=== PATIENT | male | born 1970 | race Caucasian/White ===

== ENCOUNTER 2019-08-07 09:34 | Emergency (ER) | payer OTHER ==
[2019-08-07] MEDS ORDERED: ONDANSETRON 4 MG/2 ML VIAL ONE ×2 (10:52→11:27)
[2019-08-07] MEDS ORDERED: NA CHLORIDE 0.9% 1,000 ML ONE (10:52)
[2019-08-07 11:00] LABS: Urine Blood TRACE (NEG); Urine Glucose NEGATIVE (NEG); Urine Protein 2+ (NEG); Urine pH 6.5 (5.0-7.0)
[2019-08-07 11:01] LABS: Absolute Lymphocytes (CBC) 0.7 K/uL (0.7-4.9); Basophils % 0.7 % (0-1.3); Hematocrit 46.5 % (39.6-49.0); Lymphocytes % 7.7 % (15.3-44.8); MPV 9.9 fL (7.6-11.3); RBC Red Blood Cell Count 4.96 M/uL (4.33-5.43)
[2019-08-07 11:07] LABS: Urine Bacteria <20 /HPF (NONE SEEN); Urine Culture Reflex Order NOT NEEDED; Urine Mucus HEAVY /HPF (NONE SEEN); Urine RBC <5 /HPF (NONE SEEN)
[2019-08-07 11:13] LABS: Albumin 3.7 g/dL (3.4-5.0); Bilirubin Direct 0.3 mg/dL (0-0.2); Bilirubin Total 0.9 mg/dL (0.2-1.0); Magnesium 2.2 mg/dL (1.8-2.4); Potassium 3.7 mmol/L (3.5-5.1); Protein, Total 8.2 g/dL (6.4-8.2)
--- NOTE | 2019-08-07 12:34 | RAD REPORT ---
EXAM DESCRIPTION: CT - Abdomen Pelvis Wo Contrast - 08/07/2019 12:27 pm CLINICAL HISTORY: lo;Abd pain COMPARISON: No comparisons TECHNIQUE: Axial [address] imaging of the abdomen and pelvis was performed without IV contrast. No IV contrast was given because of allergy, abnormal renal function, patient refusal or physician re quest. Oral contrast was given. All CT scans are performed using dose optimization technique as appropriate and may include automated exposure control or mA/KV adjustment according to patient size. FINDINGS: No suspicious findings in the lung bases. The liver, spleen and pancreas show no suspicious findings on non-contrast imaging. Gallbladder and b iliary tree are also without suspicious finding. No hydronephrosis or suspicious renal mass. No significant adrenal finding. Isodense renal masses an d pyelonephritis cannot be excluded in the absence of IV contrast. The urinary bladder is without sig nificant finding. Stomach and small bowel show no suspicious findings. Appendix is normal. From cecum through descendin g colon no acute finding is seen. Proximal sigmoid colon shows an 8-10 centimeter long segment of nod ular circumferential wall thickening. Patient has diverticulosis in this region. Mild edematous/infla mmatory stranding present in the adjacent fat. No extravasation of the oral contrast which has reache d the rectum. No free air, abscess or other surgically emergent component. No free air, free fluid or other site of inflammatory stranding. No hernia, mass or bulky lymphaden opathy. No suspicious bony findings. IMPRESSION: Mild to moderate severity acute sigmoid diverticulitis. No free air, abscess, extravasation of oral contrast or other surgically emergent component. Full assessment is limited is the absence of IV contrast.
--- NOTE | 2019-08-07 13:00 | EDPHYS ---
Physician Documentation [facility] Name: Rodriguez Carroll Age: 49 yrs Sex: Male : 1970 Arrival Date: 08/07/2019 Time: 09:40 Bed 7 Private MD: ED Physician Artem Barraza HPI: 08/07 10:30 This 49 yrs old Male presents to ER via Ambulatory with complaints of cp Abdominal Pain. 10:30 The patient presents with abdominal pain in the lower abdomen. Onset: The cp symptoms/episode began/occurred 1 month(s) ago. The symptoms radiate to lower back. Associated signs and symptoms: Pertinent positives: diarrhea, fever, Pertinent negatives: blood in stools, chest pain, constipation, dysuria, testicular pain, vomiting. The symptoms are described as constant. Modifying factors: the symptoms are aggravated by pressure. Historical: - Allergies: 09:51 Iodine; iw - Home Meds: 09:51 None [Active]; iw - PMHx: 09:51 TIA; iw - PSHx: 09:51 hemmorrhoid; Tonsillectomy; right leg; iw - Immunization history:: Adult Immunizations. - Social history:: Smoking status: Patient/guardian denies using tobacco, Patient uses alcohol. - Ebola Screening: : Patient negative for fever greater than or equal to 101.5 degrees Fahrenheit, and additional compatible Ebola Virus Disease symptoms Patient denies exposure to infectious person Patient denies travel to an Ebola-affected area in the 21 days before illness onset No symptoms or risks identified at this time. ROS: 10:35 Constitutional: Positive for body aches, chills, Negative for fever, poor PO intake. cp 10:35 Eyes: Negative for injury, pain, redness, and discharge. cp 10:35 Cardiovascular: Negative for chest pain, edema, palpitations. 10:35 Respiratory: Negative for cough, shortness of breath, wheezing. 10:35 Abdomen/GI: Positive for abdominal pain, nausea, diarrhea, Negative for vomiting, constipation, anorexia, black/tarry stool, rectal bleeding. 10:35 Back: Positive for radiated pain. 10:35 : Positive for small amounts, Negative for hematuria, burning with urination, testicular pain 10:35 Skin: Negative for rash. 10:35 Neuro: Negative for altered mental status, headache, weakness. 10:35 All other systems are negative. Exam: 10:40 Constitutional: The patient appears in no acute distress, alert, awake, cp non-diaphoretic, non-toxic, well developed, well nourished, uncomfortable. 10:40 Head/Face: Normocephalic, atraumatic. cp 10:40 Eyes: Periorbital structures: appear normal, Conjunctiva: normal, no exudate, no injection, Sclera: no appreciated abnormality, Lids and lashes: appear normal, bilaterally. 10:40 ENT: External ear(s): are unremarkable, Nose: is normal, Mouth: Lips: moist, Oral mucosa: pink and intact, moist, Posterior pharynx: is normal, airway is patent, no erythema, no exudate. 10:40 Chest/axilla: Inspection: normal, Palpation: is normal, no crepitus, no tenderness. 10:40 Cardiovascular: Rate: tachycardic, Rhythm: regular, Edema: is not appreciated, JVD: is not appreciated. 10:40 Respiratory: the patient does not display signs of respiratory distress, Respirations: normal, no use of accessory muscles, no retractions, no splinting, no tachypnea, labored breathing, is not present, Breath sounds: are clear throughout, no decreased breath sounds, no stridor, no wheezing. 10:40 Abdomen/GI: Inspection: abdomen appears normal, Bowel sounds: active, all quadrants, Palpation: soft, in all quadrants, moderate abdominal tenderness, in the right lower quadrant and left lower quadrant, rebound tenderness, is not appreciated, voluntary guarding, is elicited in the right lower quadrant and left lower quadrant. 10:40 Back: pain, that is moderate, of the low back area and mid back area, ROM is painful. 10:40 Skin: no rash present. Vital Signs: 09:51 BP 141 / 97; Pulse 106; Resp 16 S; Temp 99.2; Pulse Ox 97% on R/A; Weight 86.18 kg; iw Height 5 ft. 9 in. (175.26 cm); Pain 10/10; 10:44 BP 141 / 93; Pulse 94; Resp 16; Pulse Ox 98% ; bp 12:00 BP 135 / 89; Pulse 96; Resp 17; Pulse Ox 97% ; bp 13:00 BP 143 / 92; Pulse 89; Resp 17; Pulse Ox 98% ; bp 14:00 BP 133 / 85; Pulse 85; Resp 16; Temp 98.9; Pulse Ox 98% ; bp 09:51 Body Mass Index 28.06 (86.18 kg, 175.26 cm) iw MDM: 09:55 Patient medically screened. kvng 11:00 Differential diagnosis: appendicitis, bowel obstruction, diverticulitis, gastritis, cp non-specific abd pain, Ureterolithiasis, urinary tract infection. 12:58 Data reviewed: vital signs, nurses notes, lab test result(s), radiologic studies, CT cp scan, and as a result, I will discharge patient. 12:58 Counseling: I had a detailed discussion with the patient and/or guardian regarding: the cp historical points, exam findings, and any diagnostic results supporting the discharge/admit diagnosis, lab results, radiology results, the need for outpatient follow up, a errand runner, to return to the emergency department if symptoms worsen or persist or if there are any questions or concerns that arise at home. Response to treatment: the patient's symptoms have markedly improved after treatment. 08/07 10:09 Order name: Urine Dipstick--Ancillary (enter results); Complete Time: 11:27 08/07 11:27 Interpretation: Normal except: UKET 4+; UBLD TRACE; UPROT 2+. 08/07 10:24 Order name: Basic Metabolic Panel 08/07 10:24 Order name: CBC with Diff; Complete Time: 11:27 08/07 11:27 Interpretation: Normal except: ELANA% 82.2; LYM% 7.7. 08/07 10:24 Order name: Creatinine for Radiology; Complete Time: 11:27 cp 08/07 10:24 Order name: Hepatic Function; Complete Time: 11:27 cp 08/07 11:28 Interpretation: Normal except: AST 50; ALT 83; ALK 147; BILID 0.3; GLOB 4.5; A/G 0.8. 08/07 10:24 Order name: Lipase; Complete Time: 11:27 cp 08/07 11:28 Interpretation: Within normal limits: LIP 131. 08/07 10:24 Order name: Urine Microscopic Only; Complete Time: 11:27 cp 08/07 10:24 Order name: PT-INR; Complete Time: 11: cp 08/07 10:24 Order name: Ptt, Activated; Complete Time: 11:27 cp 08/07 10:24 Order name: Magnesium; Complete Time: 11:27 cp 08/07 10:24 Order name: Basic Metabolic Panel; Complete Time: 11:27 EDMS 08/07 11:28 Interpretation: Normal except: GFR 72. cp 08/07 12:26 Order name: Abdomen ; Complete Time: 12:41 EDMS 08/07 12:43 Interpretation: Report reviewed. cp 08/07 10:24 Order name: IV Saline Lock; Complete Time: 10:57 cp 08/07 10:24 Order name: Labs collected and sent; Complete Time: 10:57 cp 08/07 12:43 Order name: PO challenge; Complete Time: 13:13 cp Administered Medications: 10:40 Drug: NS 0.9% 1000 ml Route: IV; Rate: 1 bolus; Site: right antecubital; bp 14:06 Follow up: IV Status: Completed infusion bp 10:40 Drug: Zofran 4 mg Route: IVP; Site: right antecubital; bp 11:27 Follow up: Response: Pain is decreased bp 10:56 Not Given (Patient Refused): morphine 2 mg IVP once; (PAIN>8) RASS on ADMN: Combtv4, bp Very Agttd3, Agttd2, Rstlss1, AlertClm0, Drwsy-1, LtSdtn-2, ModSdtn-3, DpSdtn-4, UnArsble-5 x2 11:26 Drug: Zofran 4 mg Route: IVP; Site: right antecubital; bp 11:27 Follow up: Response: Nausea is decreased bp 13:00 Drug: metroNIDAZOLE 500 mg Volume: 100 ml; Route: IVPB; Infused Over: 30 mins; Site: bp right antecubital; 14:05 Follow up: IV Status: Completed infusion; IV Intake: 100ml bp 13:05 Drug: Bentyl 20 mg Route: PO; bp 14:05 Follow up: Response: Pain is decreased bp 13:05 Drug: Cipro 500 mg Route: PO; bp 14:06 Follow up: Response: No adverse reaction bp Disposition: 08/08 07:54 Co-signature as Attending Physician, Artem Barraza MD I agree with the assessment and kvng plan of care. Disposition: 01/09/20 12:59 Discharged to Home. Impression: Diverticulitis of large intestine without perforation or abscess without bleeding. - Condition is Stable. - Discharge Instructions: Clear Liquid Diet, Adult, High-Fiber Diet, Diverticulitis. - Prescriptions for Bentyl 20 mg Oral Tablet - take 1 tablet by ORAL route every 6 hours As needed; 20 tablet. Zofran 4 mg Oral Tablet - take 1 tablet by ORAL route every 12 hours As needed; 20 tablet. Cipro 500 mg Oral Tablet - take 1 tablet by ORAL route every 12 hours for 10 days; 20 tablet. Metronidazole 500 mg Oral Tablet - take 1 tablet by ORAL route every 8 hours; 30 tablet. - Medication Reconciliation Form, Thank You Letter, Antibiotic Education, Prescription Opioid Use form. - Follow up: Eugenio Leong MD; When: next week; Reason: Recheck today's complaints. - Problem is new. - Symptoms have improved. Signatures: Dispatcher [employer] EDID Artem Barraza MD MD cha Williams, Irene, RN RN iw Artem Otto PA PA cp Sourav Turner, RN RN bp Corrections: (The following items were deleted from the chart) 08/07 12:27 10:25 Abdomen Pelvis W Con+CT.RAD.BRZ ordered. [facility] 14:06 12:59 08/07/2019 12:59 Discharged to Home. Impression: Diverticulitis of large bp intestine without perforation or abscess without bleeding. Condition is Stable. Forms are Medication Reconciliation Form, Thank You Letter, Antibiotic Education, Prescription Opioid Use. Follow up: Eugenio Leong; When: next week; Reason: Recheck today's complaints. Problem is new. Symptoms have improved. cp
--- NOTE | 2019-08-07 13:00 | ER ---
Nurse's Notes [facility] Name: Rodriguez Carroll Age: 49 yrs Sex: Male : 1970 Arrival Date: 08/07/2019 Time: 09:40 Bed 7 Private MD: Diagnosis: Diverticulitis of large intestine without perforation or abscess without bleeding Presentation: 08/07 09:47 Presenting complaint: Patient states: been having abd issues for past month, stopped iw drinking Sunday to see if it would help, normally drinks 4-5 "doubles" a night, not getting better, since Sunday had fever/chills, body aches, low abd pain low back, also having urgency and not urinating much, dark urine, +diarrhea for months. Transition of care: patient was not received from another setting of care. Onset of symptoms was June 2019. Risk Assessment: Do you want to hurt yourself or someone else? Patient reports no desire to harm self or others. Initial Sepsis Screen: Does the patient meet any 2 criteria? No. Patient's initial sepsis screen is negative. Does the patient have a suspected source of infection? No. Patient's initial sepsis screen is negative. Care prior to arrival: None. 09:47 Method Of Arrival: Ambulatory iw 09:47 Acuity: BERNARDINO 3 iw Triage Assessment: 09:55 General: Appears in no apparent distress. comfortable, Behavior is cooperative, bp appropriate for age, anxious. Pain: Complains of pain in right lower quadrant and left lower quadrant. EENT: No deficits noted. Neuro: No deficits noted. Cardiovascular: Rhythm is sinus tachycardia. Respiratory: No deficits noted. GI: Reports lower abdominal pain, diarrhea. : No signs and/or symptoms were reported regarding the genitourinary system. Derm: No deficits noted. Musculoskeletal: No deficits noted. Historical: - Allergies: 09:51 Iodine; iw - Home Meds: 09:51 None [Active]; iw - PMHx: 09:51 TIA; iw - PSHx: 09:51 hemmorrhoid; Tonsillectomy; right leg; iw - Immunization history:: Adult Immunizations. - Social history:: Smoking status: Patient/guardian denies using tobacco, Patient uses alcohol. - Ebola Screening: : Patient negative for fever greater than or equal to 101.5 degrees Fahrenheit, and additional compatible Ebola Virus Disease symptoms Patient denies exposure to infectious person Patient denies travel to an Ebola-affected area in the 21 days before illness onset No symptoms or risks identified at this time. Screenin:59 Abuse screen: Denies threats or abuse. Denies injuries from another. Nutritional bp screening: No deficits noted. Tuberculosis screening: No symptoms or risk factors identified. Fall Risk None identified. Assessment: 09:55 General: SEE TRIAGE NOTE. bp 10:40 Reassessment: PO CONTRAST COMPLETE, CT NOTIFIED. bp 12:34 Reassessment: PT RETURNED FROM CT. bp 13:14 Reassessment: PO CHALLENGE SUCCESSFUL. D/C ON HOLD FOR ABX COMPLETION. bp 14:03 Reassessment: ABX COMPLETE. PT D/C HOME AMBULATORY, DX WITH DIVERTICULITIS. bp Vital Signs: 09:51 BP 141 / 97; Pulse 106; Resp 16 S; Temp 99.2; Pulse Ox 97% on R/A; Weight 86.18 kg; iw Height 5 ft. 9 in. (175.26 cm); Pain 10/10; 10:44 BP 141 / 93; Pulse 94; Resp 16; Pulse Ox 98% ; bp 12:00 BP 135 / 89; Pulse 96; Resp 17; Pulse Ox 97% ; bp 13:00 BP 143 / 92; Pulse 89; Resp 17; Pulse Ox 98% ; bp 14:00 BP 133 / 85; Pulse 85; Resp 16; Temp 98.9; Pulse Ox 98% ; bp 09:51 Body Mass Index 28.06 (86.18 kg, 175.26 cm) iw ED Course: 09:40 Patient arrived in ED. am2 09:50 Triage completed. iw 09:51 Arm band placed on. iw 09:54 Artem Otto PA is PHCP. cp 09:54 Artem Barraza MD is Attending Physician. cp 09:58 Sourav Turner, ISATU is Primary Nurse. bp 09:59 Patient has correct armband on for positive identification. Bed in low position. Call bp light in reach. Side rails up X2. Adult w/ patient. 10:40 Inserted saline lock: 20 gauge in right antecubital area, using aseptic technique. bp Blood collected. 12:28 Abdomen In Process Unspecified. EDMS 12:58 Eugenio Leong MD is Referral Physician. cp 14:03 No provider procedures requiring assistance completed. IV discontinued, intact, bp bleeding controlled, No redness/swelling at site. Pressure dressing applied. Administered Medications: 10:40 Drug: NS 0.9% 1000 ml Route: IV; Rate: 1 bolus; Site: right antecubital; bp 14:06 Follow up: IV Status: Completed infusion bp 10:40 Drug: Zofran 4 mg Route: IVP; Site: right antecubital; bp 11:27 Follow up: Response: Pain is decreased bp 10:56 Not Given (Patient Refused): morphine 2 mg IVP once; (PAIN>8) RASS on ADMN: Combtv4, bp Very Agttd3, Agttd2, Rstlss1, AlertClm0, Drwsy-1, LtSdtn-2, ModSdtn-3, DpSdtn-4, UnArsble-5 x2 11:26 Drug: Zofran 4 mg Route: IVP; Site: right antecubital; bp 11:27 Follow up: Response: Nausea is decreased bp 13:00 Drug: metroNIDAZOLE 500 mg Volume: 100 ml; Route: IVPB; Infused Over: 30 mins; Site: bp right antecubital; 14:05 Follow up: IV Status: Completed infusion; IV Intake: 100ml bp 13:05 Drug: Bentyl 20 mg Route: PO; bp 14:05 Follow up: Response: Pain is decreased bp 13:05 Drug: Cipro 500 mg Route: PO; bp 14:06 Follow up: Response: No adverse reaction bp Intake: 14:05 IV: 100ml; Total: 100ml. bp Outcome: 12:59 Discharge ordered by . cp 14:04 Discharged to home ambulatory. bp 14:04 Condition: stable 14:04 Discharge instructions given to patient, Instructed on discharge instructions, follow up and referral plans. medication usage, Demonstrated understanding of instructions, follow-up care, medications, Prescriptions given X 4. 14:06 Patient left the ED. bp Signatures: Dispatcher [employer] EDAimee Gamboa RN RN iw Artem Otto PA PA Sandy Blake am2 Sourav Turner RN RN bp
[2019-08-07] MEDS ORDERED: CIPROFLOXACIN HCL 500 MG TAB ONE (13:08)
[2019-08-07] MEDS ORDERED: DICYCLOMINE HCL 10 MG CAP ONE (13:09)
[2019-08-07] MEDS ORDERED: METRONIDAZOLE 500mg IVPB 500 MG/100 ML BAG IV ONE (13:09)
[2019-08-07 14:15] VITALS: O2SAT 98
[2019-08-07 14:16] VITALS: BP 133/85; TEMP 98.9
== END 2019-08-07 14:06 | disposition home or self-care (01) ==
LOC: ER 09:34
DX: K57.32 Diverticulitis of large intestine without perforation or abscess without bleeding (principal); Z91.048 Other nonmedicinal substance allergy status
CPT/HCPCS: 96365; 96361; 85025; 80048; 36415; 83735; 85610; 80076; 85730; 83690; 74176; 96375; 99284; J7030; J2405 ×2; 81003; 81015

== ENCOUNTER 2019-10-01 15:05 | Inpatient (IN) | payer OTHER ==
--- OUTSIDE RECORDS SUMMARY | 2019-10-01 15:07 | XMS REPORT ---
:1970 [facility] Address [address] [place] [address] Dr. Ivy [address] [place] [id number] Care Team Providers Name Role Phone Unavailable Unavailable Unavailable Problems This patient has no known problems. Allergies, Adverse Reactions, Alerts This patient has no known allergies or adverse reactions. Medications This patient has no known medications.
[2019-10-01 16:20] LABS: Absolute Lymphocytes (CBC) 1.4 K/uL (0.7-4.9); Basophils % 1.2 % (0-1.3); Lymphocytes % 21.5 % (15.3-44.8); MPV 8.8 fL (7.6-11.3); RBC Red Blood Cell Count 4.32 M/uL (4.33-5.43)
[2019-10-01 16:42] LABS: ALT/SGPT 47 U/L (12-78); AST/SGOT 21 U/L (15-37); Albumin 3.9 g/dL (3.4-5.0); Alkaline Phosphatase 74 U/L (45-117); BUN Blood Urea Nitrogen 16 mg/dL (7-18); Bicarbonate 28 mmol/L (21-32); Bilirubin Direct < 0.1 mg/dL (0-0.2); Bilirubin Total 0.4 mg/dL (0.2-1.0); Glucose Level 98 mg/dL (74-106); Lipase 152 U/L (73-393); Potassium 3.9 mmol/L (3.5-5.1); Protein, Total 7.7 g/dL (6.4-8.2); Sodium Level 140 mmol/L (136-145)
[2019-10-01] MEDS ORDERED: NA CHLORIDE 0.9% 1,000 ML ONE (17:15)
--- NOTE | 2019-10-01 17:17 | RAD REPORT ---
EXAM DESCRIPTION: CT - Abdomen Pelvis Wo Contrast - 10/01/2019 5:00 pm CLINICAL HISTORY: Abdominal pain COMPARISON: July 2019 TECHNIQUE: Computed axial tomography of the abdomen and pelvis was obtained. IV and oral contrast we re not requested. All CT scans are performed using dose optimization technique as appropriate and may include automated exposure control or mA/KV adjustment according to patient size. FINDINGS: The evaluation of solid organs, vessels and bowel is limited secondary to the lack of con trast administration. The liver, spleen, pancreas, adrenals and kidneys appear grossly normal. The appendix is normal. Mild stranding is present adjacent to the sigmoid colon. There is an 11 millimeter extraluminal colle ction of air within the mesocolon. No abscess. No free air IMPRESSION: Mild diverticulitis. However there is an 11 millimeter extraluminal collection of air co ntained within the mesocolon indicative of a micro perforation.
--- NOTE | 2019-10-01 17:45 | ER ---
Nurse's Notes [facility] Name: Rodriguez Carroll Age: 49 yrs Sex: Male : 1970 Arrival Date: 10/01/2019 Time: 15:08 Bed 14 Private MD: Diagnosis: Diverticulitis of large intestine with perforation and abscess with bleeding Presentation: 09/30 15:11 Chief complaint: Patient states: A month ago, was here and diagnosed with ca1 diverticulitis and was given antibiotics. Seen Dr. Massey and he put me again on the same antibiotics. So I have been taking them for 2 weeks now. I felt better for about 3-4 days, but this weekend, I am back to where I started, with fever, abdominal pain and some rectal bleeding with constipation. Reports nausea and diarrhea also. Coronavirus screen: The patient has NOT traveled to a country currently being monitored by the CDC within the last 14 days. The patient has NOT had contact with any known and/or suspected case of coronavirus. Ebola Screen: Patient negative for fever greater than or equal to 101.5 degrees Fahrenheit, and additional compatible Ebola Virus Disease symptoms Patient denies exposure to infectious person. Patient denies travel to an Ebola-affected area in the 21 days before illness onset. No symptoms or risks identified at this time. Initial Sepsis Screen: Does the patient meet any 2 criteria? No. Patient's initial sepsis screen is negative. Does the patient have a suspected source of infection? No. Patient's initial sepsis screen is negative. Risk Assessment: Do you want to hurt yourself or someone else? Patient reports no desire to harm self or others. Onset of symptoms was October 01, 2019. 15:11 Method Of Arrival: Ambulatory ca1 15:11 Acuity: BERNARDINO 3 ca1 Triage Assessment: 15:20 General: Appears in no apparent distress. comfortable, Behavior is calm, cooperative, ca1 appropriate for age. Pain: Complains of pain in abdomen. Historical: - Allergies: 15:20 Iodine; ca1 - Home Meds: 15:20 None [Active]; ca1 - PMHx: 15:20 TIA; Diverticulitis; ca1 - PSHx: 15:20 hemmorrhoidectomy; Tonsillectomy; right leg; ca1 - Immunization history:: Adult Immunizations up to date, Flu vaccine is up to date. - Social history:: Smoking status: Patient reports use of chewing tobacco. Screenin:26 Abuse screen: Denies threats or abuse. Denies injuries from another. Nutritional bp screening: No deficits noted. Tuberculosis screening: No symptoms or risk factors identified. Fall Risk None identified. Assessment: 15:26 General: SEE TRIAGE NOTE. GI: Bowel sounds present X 4 quads. Abd is soft X 4 quads. bp 16:54 Reassessment: PT TO CT WITH VEHICLE UPHOLSTERER. bp 17:09 Reassessment: PT RETURNED FROM CT. RESULTS PENDING. bp 17:38 Reassessment: PT LAST PO INTAKE CONFIRMED 1230 TODAY. PER RADIOLOGIST, BOWEL bp PERFORATION NOTED ON CT. 18:06 Reassessment: DR HARVEY AT B/S FOR ADMIT. bp 19:15 General: Appears in no apparent distress. Behavior is calm, cooperative. Pain: Denies ah pain. Neuro: Level of Consciousness is awake, alert, Oriented to person, place, time. Cardiovascular: Reports Heart tones S1 S2 present. Respiratory: Respiratory effort is even, unlabored, Respiratory pattern is regular, symmetrical. GI: Bowel sounds present X 4 quads. Abd is soft X 4 quads. Vital Signs: 15:11 BP 135 / 93; Pulse 76; Resp 17 S; Temp 97.9(TE); Pulse Ox 98% on R/A; Weight 81.19 kg ca1 (R); Height 5 ft. 9 in. (175.26 cm) (R); Pain 2/10; 16:08 BP 126 / 86; Pulse 70; Resp 16; Pulse Ox 96% ; bp 16:54 BP 131 / 94; Pulse 62; Resp 17; Pulse Ox 97% ; bp 18:05 BP 148 / 93; Pulse 67; Resp 16; Pulse Ox 100% ; bp 19:45 BP 132 / 76; Pulse 64; Temp 97.9; Pulse Ox 99% ; ah 15:11 Body Mass Index 26.43 (81.19 kg, 175.26 cm) ca1 ED Course: 15:08 Patient arrived in ED. mr 15:19 Triage completed. ca1 15:20 Arm band placed on right wrist. ca1 15:25 Sourav Turner, ISATU is Primary Nurse. bp 15:26 Artem Otto PA is PHCP. cp 15:26 Ernesto Mendoza MD is Attending Physician. cp 15:26 Patient has correct armband on for positive identification. Bed in low position. Call bp light in reach. Side rails up X2. 16:05 Inserted saline lock: 20 gauge in right antecubital area, using aseptic technique. bp Blood collected. 17:01 CT Abd/Pelvis - Without Contrast In Process Unspecified. EDUT 17:43 Lu Harvey MD is Hospitalizing Provider. cp 20:05 No provider procedures requiring assistance completed. Patient admitted, IV remains in place. intact. Administered Medications: 17:00 Drug: NS 0.9% 1000 ml Route: IV; Rate: 1 bolus; Site: right antecubital; bp 17:50 Drug: Zosyn 3.375 grams Route: IVPB; Infused Over: 60 mins; Site: right antecubital; bp Outcome: 17:44 Decision to Hospitalize by Provider. cp 20:03 Admitted to [facility] by [facility], via wheelchair, room 408, with chart, Report called to Rosario LUNSFORD 20:03 Condition: good 20:03 Instructed on the need for admit, Demonstrated understanding of instructions. 20:31 Patient left the ED. Signatures: Dispatcher [employer] EDUT Gopal Megan Artem Reed, Sourav Medrano cp, RN RN Trisha Leonardo RN RN ca1 Harris, Amy, RN RN
--- NOTE | 2019-10-01 17:46 | EDPHYS ---
Physician Documentation [facility] Name: Rodriguez Carroll Age: 49 yrs Sex: Male : 1970 Arrival Date: 10/01/2019 Time: 15:08 Bed 14 Private MD: ED Physician Ernesto Mendoza HPI: 09/30 15:55 This 49 yrs old Male presents to ER via Ambulatory with complaints of cp Abdominal Pain. 15:55 The patient presents with abdominal pain in the lower abdomen. cp 15:55 Onset: The symptoms/episode began/occurred gradually. The symptoms do not radiate. cp Associated signs and symptoms: Pertinent positives: constipation, diarrhea, fever, rectal bleeding, Pertinent negatives: nausea and vomiting, chest pain, dysuria, testicular pain. 15:55 The patient has experienced a previous episode, occurred specifically on July 2019, cp was diagnosed with diverticulitis. Patient reports he is currently taking oral antibiotics prescribed by DR Leong for diverticulitis for past 2 weeks. Historical: - Allergies: 15:20 Iodine; ca1 - Home Meds: 15:20 None [Active]; ca1 - PMHx: 15:20 TIA; Diverticulitis; ca1 - PSHx: 15:20 hemmorrhoidectomy; Tonsillectomy; right leg; ca1 - Immunization history:: Adult Immunizations up to date, Flu vaccine is up to date. - Social history:: Smoking status: Patient reports use of chewing tobacco. ROS: 16:00 Constitutional: Negative for body aches, chills, fever, poor PO intake. cp 16:00 Eyes: Negative for injury, pain, redness, and discharge. cp 16:00 ENT: Negative for ear pain, sore throat, difficulty swallowing, difficulty handling secretions. 16:00 Cardiovascular: Negative for chest pain, palpitations. 16:00 Respiratory: Negative for cough, shortness of breath, wheezing. 16:00 Abdomen/GI: Positive for abdominal pain, diarrhea, constipation, rectal bleeding, Negative for nausea, vomiting, anorexia, black/tarry stool. 16:00 Back: Negative for radiated pain. 16:00 : Negative for urinary symptoms, testicular pain 16:00 Skin: Negative for rash. 16:00 Neuro: Negative for altered mental status, headache, weakness. 16:00 All other systems are negative. Exam: 16:15 Constitutional: The patient appears in no acute distress, alert, awake, non-toxic, well cp developed, well nourished. 16:15 Head/Face: Normocephalic, atraumatic. cp 16:15 Eyes: Periorbital structures: appear normal, Conjunctiva: normal, no exudate, no injection, Sclera: no appreciated abnormality, Lids and lashes: appear normal, bilaterally. 16:15 ENT: External ear(s): are unremarkable, Nose: is normal, Mouth: Lips: moist, Oral mucosa: pink and intact, moist, Posterior pharynx: is normal, airway is patent, no erythema, no exudate. 16:15 Neck: ROM/movement: is normal, is supple, without pain, no range of motions limitations. 16:15 Chest/axilla: Inspection: normal, Palpation: is normal, no crepitus, no tenderness. 16:15 Cardiovascular: Rate: normal, Rhythm: regular. 16:15 Respiratory: the patient does not display signs of respiratory distress, Respirations: normal, no use of accessory muscles, labored breathing, is not present, Breath sounds: are clear throughout, no decreased breath sounds, no wheezing. 16:15 Abdomen/GI: Inspection: abdomen appears normal, Bowel sounds: active, all quadrants, Palpation: soft, in all quadrants, moderate abdominal tenderness, in the right lower quadrant and left lower quadrant, rebound tenderness, is not appreciated, voluntary guarding, is elicited in the right lower quadrant and left lower quadrant. 16:15 Back: pain, is absent, ROM is normal. 16:15 Skin: no rash present. 16:15 Neuro: Orientation: to person, place \T\ time. Mentation: is normal, Motor: moves all fours, strength is normal. 17:17 : Rectal exam: Rectal tone: normal, Stool: brown, Guaiac testing: results were cp positive for occult blood, hemorrhoid(s), are not appreciated. Vital Signs: 15:11 BP 135 / 93; Pulse 76; Resp 17 S; Temp 97.9(TE); Pulse Ox 98% on R/A; Weight 81.19 kg ca1 (R); Height 5 ft. 9 in. (175.26 cm) (R); Pain 2/10; 16:08 BP 126 / 86; Pulse 70; Resp 16; Pulse Ox 96% ; bp 16:54 BP 131 / 94; Pulse 62; Resp 17; Pulse Ox 97% ; bp 18:05 BP 148 / 93; Pulse 67; Resp 16; Pulse Ox 100% ; bp 19:45 BP 132 / 76; Pulse 64; Temp 97.9; Pulse Ox 99% ; ah 15:11 Body Mass Index 26.43 (81.19 kg, 175.26 cm) ca1 MDM: 15:26 Patient medically screened. cp 16:00 Differential diagnosis: appendicitis, cholecystitis, Cholelithiasis, diverticulitis, cp gastritis, non-specific abd pain, pancreatitis, urinary tract infection. 17:25 Data reviewed: vital signs, nurses notes, lab test result(s), radiologic studies, CT cp scan, and as a result, I will admit patient. 17:42 Physician consultation: Garry Nunn MD was contacted at 17:42, regarding consult, cp patient's condition, and will see patient in inpatient room, tomorrow, would like admission per Dr. Lu Geller MD would like medications started, Zosyn. 18:00 Counseling: I had a detailed discussion with the patient and/or guardian regarding: the cp historical points, exam findings, and any diagnostic results supporting the discharge/admit diagnosis, lab results, radiology results, the need for further work-up and treatment in the hospital. 09/30 15:51 Order name: Basic Metabolic Panel; Complete Time: 16:44 cp 09/30 17:25 Interpretation: Normal except: GFR 74. cp 09/30 15:51 Order name: CBC with Diff; Complete Time: 16:44 cp 09/30 15:51 Order name: Creatinine for Radiology; Complete Time: 16:44 cp 09/30 15:51 Order name: Hepatic Function; Complete Time: 16:44 cp 09/30 15:52 Order name: Lipase; Complete Time: 16:44 cp 09/30 16:47 Order name: CT Abd/Pelvis - Without Contrast; Complete Time: 17:25 cp 09/30 17:25 Interpretation: Report reviewed. cp 09/30 15:52 Order name: IV Saline Lock; Complete Time: 16:07 cp 09/30 15:52 Order name: Labs collected and sent; Complete Time: 16:08 cp 09/30 17:26 Order name: NPO; Complete Time: 17:34 cp Administered Medications: 17:00 Drug: NS 0.9% 1000 ml Route: IV; Rate: 1 bolus; Site: right antecubital; bp 17:50 Drug: Zosyn 3.375 grams Route: IVPB; Infused Over: 60 mins; Site: right antecubital; bp Disposition: 10/01 10:50 Co-signature as Attending Physician, Ernesto Mendoza MD I agree with the assessment and kdr plan of care. Disposition: 10/01/19 17:44 Hospitalization ordered by Lu Geller for Inpatient Admission. Preliminary diagnosis is Diverticulitis of large intestine with perforation and abscess with bleeding. - Bed requested for Telemetry/MedSurg (Inpatient). - Status is Inpatient Admission. ah - Condition is Stable. - Problem is an ongoing problem. - Symptoms are unchanged. Signatures: Dispatcher [employer] EDMS Omaira Rodriguez Kevin, MD MD [facility] Artem Otto PA PA cp Sourav Turner, RN RN bp Trisha Foster, RN RN [facility] Ivone Short RN RN Corrections: (The following items were deleted from the chart) 09/30 18:11 17:44 Hospitalization Ordered by Lu Geller MD for Inpatient Admission. Preliminary bd diagnosis is Diverticulitis of large intestine with perforation and abscess with bleeding. Bed requested for Telemetry/MedSurg (Inpatient). Status is Inpatient Admission. Condition is Stable. Problem is an ongoing problem. Symptoms are unchanged. cp 20:31 18:11 10/01/2019 17:44 Hospitalization Ordered by Lu Geller MD for Inpatient Admission. Preliminary diagnosis is Diverticulitis of large intestine with perforation and abscess with bleeding. Bed requested for Telemetry/MedSurg (Inpatient). Status is Inpatient Admission. Condition is Stable. Problem is an ongoing problem. Symptoms are unchanged. bd
[2019-10-01] MEDS ORDERED: PIPER/TAZO/NS 3.375gm 3.375 GM/100 ML BAG ONE (17:55)
[2019-10-01] MEDS ORDERED: MORPHINE 2 MG/ML SYR IV PRN (20:26)
[2019-10-01] MEDS ORDERED: ONDANSETRON 4 MG/2 ML VIAL IV PRN (20:26)
[2019-10-01] MEDS ORDERED: ACETAMINOPHEN 650MG/RECT SUPP RECT PRN (20:26)
[2019-10-01] MEDS ORDERED: HYDRALAZINE HCL 20 MG/ML VIAL IV PRN (20:26)
[2019-10-01 20:32] VITALS: BMI 26.4
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
[2019-10-02] MEDS ORDERED: PIPERACIL/TAZO 3.375 GM VIAL IV ONE (00:28)
[2019-10-02] MEDS ORDERED: NA CHLORIDE 0.9% 100 ML IV ONE (00:35)
[2019-10-02] MEDS: D5.45NS W/KCL 20MEQ 1,000 ML IV SCH ×4 (00:49→17:26)
[2019-10-02] MEDS: PIPER/TAZO/NS 3.375gm 3.375 GM/100 ML BAG IVPB SCH ×3 (00:52→17:00)
[2019-10-02 04:40] LABS: Albumin 3.1 g/dL (3.4-5.0); Bilirubin Total 0.7 mg/dL (0.2-1.0); Magnesium 2.2 mg/dL (1.8-2.4); Phosphorus 3.2 mg/dL (2.5-4.9); Potassium 3.6 mmol/L (3.5-5.1); Protein, Total 6.3 g/dL (6.4-8.2)
[2019-10-02 04:50] LABS: Absolute Lymphocytes (CBC) 1.8 K/uL (0.7-4.9); Basophils % 3.9 % (0-1.3); Hematocrit 38.5 % (39.6-49.0); Lymphocytes % 31.7 % (15.3-44.8); MPV 9.2 fL (7.6-11.3); RBC Red Blood Cell Count 4.17 M/uL (4.33-5.43)
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
[2019-10-02] MEDS ORDERED: POTASSIUM 25 MEQ EFFERV TAB PO ONE (11:40)
[2019-10-02 13:09] LABS: Blood Morphology Comment NOT SEEN (NOT SEEN); Platelet Estimate ADEQ; Platelets, Giant PRESENT
--- NOTE | 2019-10-02 18:59 | PN ---
Date of Progress Note: 10/02/2019 Subjective: Patient seen and examined. Chart reviewed and case discussed with RN and Dr. Nunn. Patient is doing well. Pain is about the same; has not had any further vomiting. Did have some nausea. No bloody bowel movements. Medications: Reviewed. Physical Examination: Vital Signs: Temperature 97.6, heart rate 75, blood pressure 136/85, respirations 18, O2 sat 98% on room air. General: Awake, alert, oriented x3, in some mild distress, ill-appearing male. CV: S1, S2. Regular rate and rhythm. Respiratory: Moving air well bilaterally. Abdomen: Soft. Tenderness to palpation in the right lower quadrant. There was no rebound or rigidity. Positive bowel sounds. Extremities: No clubbing, cyanosis, or edema. Neurologic: Nonfocal. Laboratory Data: Sodium 140, potassium 3.6, chloride 108, CO2 29, BUN 13, creatinine 0.96, glucose 108, calcium 8.2, phosphorus 3.2, magnesium 2.2. Albumin 3.1. WBC 5.7, H and H 12.9 and 38.5, platelets 264, neutrophils 50%. Assessment And Plan: A 49-year-old male with: 1. Acute diverticulitis with perforation. No abscess. We will start on clear liquids. No bleeding has been noticed. Appreciate Dr. Nunn's input. Continue with intravenous fluids. GI, Dr. Leong has been consulted as well. 2. Failed outpatient treatment. 3. Essential hypertension, stable. Continue hydralazine p.r.n. 4. DVT prophylaxis with sequential compression devices. /CARROL Voice ID: [id number] Report ID: [id number] [facility]
[2019-10-03] MEDS: PIPER/TAZO/NS 3.375gm 3.375 GM/100 ML BAG IVPB SCH ×3 (00:09→16:37)
[2019-10-03] MEDS: D5.45NS W/KCL 20MEQ 1,000 ML IV SCH ×4 (01:13→16:47)
[2019-10-03 06:15] LABS: Absolute Lymphocytes (CBC) 1.9 K/uL (0.7-4.9); Basophils % 4.4 % (0-1.3); Hematocrit 40.4 % (39.6-49.0); Lymphocytes % 33.5 % (15.3-44.8)
[2019-10-03 06:21] LABS: Albumin 3.4 g/dL (3.4-5.0); Bilirubin Total 0.6 mg/dL (0.2-1.0); Magnesium 2.3 mg/dL (1.8-2.4); Potassium 4.4 mmol/L (3.5-5.1); Protein, Total 6.5 g/dL (6.4-8.2)
--- NOTE | 2019-10-03 13:20 | PN ---
Date of Progress Note: 10/03/2019 Subjective: Patient with no complaint. Objective: Vital Signs: Stable. Afebrile. White count is normal. Abdomen: Soft, nondistended, nontender. Positive bowel sounds. Assessment: Acute sigmoid diverticulitis with microperforation. Recommendations: We will advance diet. Keep patient for another 24 hours on IV antibiotics. Patien t can be discharged home tomorrow on Augmentin and Flagyl. Plan of care discussed with Dr. Yimi carson. /MODL Voice ID: [id number] Report ID: [id number]
--- NOTE | 2019-10-03 15:51 | PN ---
Date of Progress Note: 10/03/2019 Patient seen and examined. Chart reviewed and case discussed with RN and Dr. Nunn. Patient is doin g better. States his pain is improved. Tolerating clear liquids. Did have multiple loose bowels. Medication list reviewed. Physical Examination: Vital Signs: Temperature 97, heart rate 76, blood pressure 117/82, respirations 16, O2 sat 98% on ro om air. General: Awake, alert, oriented x3, in some mild distress, ill-appearing male. CV: S1, S2. Regular rate and rhythm. Peripheral pulses present. Respiratory: Moving air well bilaterally. No wheezing or stridor. No use of accessory muscles. Gastrointestinal: Abdomen is soft. Patient does have some minimal tenderness on the left lower quad rant. No distention. Positive bowel sounds. Extremities: No clubbing, cyanosis, or edema. Neurologic: Nonfocal. Laboratory Data: Sodium 142, potassium 4.4, chloride 110, CO2 of 28, BUN 6, creatinine 0.96, glucose 91, calcium 8.3, phosphorus 3, magnesium 2.3, albumin 3.4. WBC 5.6, H and H 13.7 and 40.4, platelet s 257. Assessment: 1.A 49-year-old male with acute diverticulitis with perforation of the mesocolon. No abscess. Page ent tolerating clear liquids. We will advance as tolerated. Patient has not had any further bleedin g. He is having some loose stools. Appreciate Dr. Nunn's input. He will need outpatient colonosco py once acute infection has resolved in the next 6-8 weeks. We will continue with IV antibiotics. W lashonda blood cell count is normal. Pain is significantly better. 2.Failed outpatient treatment. 3.Essential hypertension, stable. We will continue with hydralazine p.r.n. 4.Hypocalcemia. Plan: Advance diet to full liquids and GI soft. Home by tomorrow if doing better. SA/CARROL Voice ID: [id number] Report ID: [id number]
[2019-10-03 22:18] VITALS: O2SAT 96
[2019-10-04] MEDS: PIPER/TAZO/NS 3.375gm 3.375 GM/100 ML BAG IVPB SCH ×2 (01:51→08:09)
[2019-10-04] MEDS: D5.45NS W/KCL 20MEQ 1,000 ML IV SCH (05:53)
[2019-10-04 06:10] LABS: Albumin 3.4 g/dL (3.4-5.0); Bilirubin Total 0.3 mg/dL (0.2-1.0); Magnesium 2.1 mg/dL (1.8-2.4); Phosphorus 3.4 mg/dL (2.5-4.9); Potassium 3.9 mmol/L (3.5-5.1); Protein, Total 6.4 g/dL (6.4-8.2)
[2019-10-04] MEDS ORDERED: POTASSIUM CL SA 10 MEQ TAB PO ONE (09:00)
[2019-10-04 10:12] VITALS: BP 146/92; TEMP 97.8
--- NOTE | 2019-10-04 14:13 | PN ---
Date of Progress Note: 10/04/2019 Subjective: Patient is awake, alert. No complaint. Objective: Vital Signs: Stable. Afebrile. Abdomen: Benign. Assessment: Acute sigmoid diverticulitis with microperforation. Recommendations: Patient is clinically stable for discharge home on oral antibiotics, Augmentin, and Flagyl. Plan of care discussed with Dr. Geller. HERMANN/CARROL Voice ID: [id number] Report ID: [id number]
--- NOTE | 2019-10-05 00:28 | DS ---
Date of Discharge: 10/04/2019 Consultants: 1.Dr. Nunn with General Surgery. 2.Dr. Leong with GI. Procedures: None. Admitting Diagnoses: 1.Acute diverticulitis with perforation and no abscess. 2.Failed outpatient treatment. 3.Essential hypertension. Discharge Diagnoses: 1.Acute diverticulitis with perforation without abscess. 2.Failed outpatient treatment. 3.Essential hypertension. Hospital Course: Patient is a 49-year-old male with no significant past medical history, comes in wi th abdominal pain. Patient was recently seen by GI for diverticulitis, was on antibiotics x2 courses with Cipro and Flagyl. He failed outpatient treatment and was admitted to the hospital. His CAT sc an showed diverticulitis and microperforation of the mesocolon of 11 mm. Patient was admitted, was p laced on IV fluids and IV antibiotics. He was kept n.p.o. Patient did well with conservative treatm ent. Dr. Nunn with General Surgery was consulted as well as Dr. Leong, his GI doctor. Patient was slowly reintroduced to clear liquids. He did well. His white blood cell count improved. His pain slowly resolved. Patient was advanced to low-fiber GI soft diet and was able to tolerate his diet, d id not have any further nausea, vomiting. He did have normal bowel movement, but no further bleeding , which he did have at home. Pain was resolved. Patient was able to be weaned off pain medications. He was then cleared for discharge and was sent home in a stable condition. Activity: As tolerated. Medications: As per medication reconciliation list. Patient to finish off course of Augmentin and F lagyl for a total of 2 weeks. Followup: Follow up with primary care physician in 2-3 days. Follow up with GI, Dr. Leong in [address] [place] [address] and have referral made to colorectal specialist in [place]. Return to ER for worsening condition. Diet: [place], low-fiber, low-residue diet. Physical Examination: General: Awake, alert, and oriented, no acute distress. CV: S1, S2. Respiratory: Moving air well bilaterally. Abdomen: Abdomen is soft, nontender, nondistended. Positive bowel sounds. Extremities: No clubbing, cyanosis, edema. Neurologic: Nonfocal. Total time spent discharging patient was 38 minutes. SA/MODL Voice ID: [id number] Report ID: [id number]
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
== END 2019-10-04 10:59 | disposition home or self-care (01) | DRG 392 ==
LOC: ER 15:05 → ERHOLD 17:44 → 4TH 19:53
PROVIDERS: ADMIT Family Medicine; ATTEND Family Medicine
DX: K57.80 Diverticulitis of intestine, part unspecified, with perforation and abscess without bleeding (principal); I10 Essential (primary) hypertension; E83.51 Hypocalcemia
CPT/HCPCS: 36415; 74176; 80048; 80053; 80076; 83690; 83735; 84100; 85025; 94760; 96374; 99285; J2543; J7030